=== PATIENT | male | born 1990 | race African-American/Black ===

== ENCOUNTER 2016-07-26 11:39 | Emergency (ER) | payer OTHER ==
[~2016-07-26] VITALS: Ht 175.3 cm; Wt 80.9 kg
[2016-07-26 11:42] VITALS: TEMP 36.9; Ht 175.3 cm; Wt 80.9 kg
[2016-07-26] MEDS ORDERED: CLR10 PO (11:59)
[2016-07-26] MEDS ORDERED: ZNTT/150 PO (11:59)
[2016-07-26] MEDS ORDERED: SODIUM CHLORIDE 0.9% 1000ML 1,000 ML IV STA (12:14)
[2016-07-26 12:39] LABS: BASO % 0.3 %; BASO ABS # 0.02 K/uL (0-0.2); COMPLETE YES; EOS % 3.9 %; HEMATOCRIT 46.8 % (42-52); IG% 0.2 %; LYMPH % 38.5 %; LYMPH ABS # 2.28 K/uL (1.2-3.4); MEAN CELL VOLUME 92.5 fL (80-100); MEAN CORPUSCULAR HEMOGLOBIN 33.8 pg (25-34); MEAN CORPUSCULAR HGB CONC 36.5 g/dl (32-36); MEAN PLATELET VOLUME 9.9 fL (7.4-10.4); MONO % 11.5 %; NEUT % 45.6 %; PLATELET COUNT 166 K/uL (130-400); RED BLOOD COUNT 5.06 M/uL (4.7-6.1); WHITE BLOOD COUNT 5.92 K/uL (4.8-10.8)
[2016-07-26] MEDS ORDERED: KETOROLAC TROMETHAMINE 30 MG/ML VIAL IV STA (12:52)
[2016-07-26 12:59] LABS: BUN/CREATININE RATIO 8.6 (10-20); CALCIUM 9.4 mg/dl (8.5-10.1); POTASSIUM 3.5 mmol/L (3.5-5.1)
[2016-07-26] MEDS ORDERED: OPTIRAY 320 IV PRN (13:00)
--- NOTE | 2016-07-26 14:23 | DIAGNOSTIC IMAGING REPORT ---
ABDOMEN AND PELVIS CT WITH IV CONTRAST CT DOSE: 282.65 mGy.cm HISTORY: right sided abdominal pain, vomiting. No prior surgeries. TECHNIQUE: Multiaxial CT images of the abdomen and pelvis were performed following the use of intravenous contrast. COMPARISON STUDY: None. FINDINGS: The lung bases are clear. The liver, spleen, gallbladder, pancreas, kidneys, and adrenal glands are within normal limits. No bowel wall thickening or obstruction. The pelvic organs are unremarkable. No suspicious lytic or blastic osseous lesions. Normal appendix. A few sigmoid diverticula. IMPRESSION: 1. No bowel wall thickening or obstruction. 2. Normal appendix. 3. A few colonic diverticula. Electronically signed by: Logan Selby M.D. 07/26/2016 2:22 PM Dictated Date/Time: 07/26/2016 2:08 PM
[2016-07-26 15:53] LABS: URINE APPEARANCE CLEAR (CLEAR); URINE BILIRUBIN NEG (NEG); URINE COLOR YELLOW; URINE NITRITE NEG (NEG); URINE PH 7.5 (4.5-7.5); URINE SPECIFIC GRAVITY > 1.045 (1.000-1.030); UROBILINOGEN NEG (NEG); ZZUR CULT IF INDIC CLEAN CATCH NO
[2016-07-26 15:54] LABS: MANUAL MICROSCOPIC REQUIRED? NO; REVIEW REQ? NO
[2016-07-26 16:21] VITALS: BP 131/76; PULSE 88; O2SAT 98
--- NOTE | 2016-07-26 19:59 | EMERGENCY ROOM VISIT NOTE ---
History Report prepared by Omkaribhansa: Ruth Lane Under the Supervision of: Dr. Camilo Frank M.D. First contact with patient: 12:13 Chief Complaint: ABDOMINAL PAIN Stated Complaint: DYSPHAGIA Nursing Triage Summary: Diffuse abd pain, right side greater than left. Vomited today, yellow liquid. Still has gallbladder. History of Present Illness The patient is a 25 year old male who presents to the Emergency Room with complaints of waxing and waning abdominal pain over the past 3 days. The pain is located in the periumbilical area but is worse towards the right side of his abdomen. He has never had similar abdominal pain before. Today, he had an episode of vomiting. The patient states that he has had some heartburn recently but he has a history of GERD. His current overall discomfort is a 5/10, although it was a 10/10 this morning. He does not have a history of abdominal surgeries. There is no known family history of abdominal problems. Pt denies LOC , headache, fevers, chills, diaphoresis, visual changes, neck pain, chest pain, breathing difficulties, nausea, back pain, melena, hematochezia, groin pain, urinary symptoms, numbness, weakness, lymphadenopathy, rash, or other complaints. Source of History: patient Onset: over the past 3 days Position: abdomen (periumbilical, worse on right side) Symptom Intensity: 5/10 Timing: waxes/wanes Associated Symptoms: + vomiting Review of Systems See HPI for pertinent positives and negatives. A total of ten systems were reviewed and were otherwise negative. Past Medical & Surgical Medical Problems: (1) Chronic GERD Family History No pertinent family history stated. Social History Smoking Status: Current Every Day Smoker [facility] Occupation Status: other (inmate) Current/Historical Medications Scheduled Loratadine (Claritin), 10 MG PO DAILY Ranitidine (Zantac), 150 MG PO DAILY Allergies Coded Allergies: No Known Allergies (Unverified , 07/26/16) Physical Exam Vital Signs Date Time Temp Pulse Resp B/P Pulse Ox O2 Delivery O2 Flow Rate FiO2 07/26/16 16:21 88 17 131/76 98 07/26/16 14:25 84 16 114/74 99 Room Air 07/26/16 13:24 75 16 149/74 99 Room Air 2/3/17 11:42 36.9 71 18 140/84 99 Room Air Physical Exam GENERAL: Awake, alert, well-appearing, in no distress HENT: Normocephalic, atraumatic. Oropharynx unremarkable. EYES: Normal conjunctiva. Sclera non-icteric. NECK: Supple. No nuchal rigidity. FROM. No JVD. RESPIRATORY: Clear to auscultation. CARDIAC: Regular rate, normal rhythm. Extremities warm and well perfused. Pulses equal. ABDOMEN: Soft, non-distended. Left lower, right lower, and mild right upper quadrant tenderness with some guarding but no rebound. No masses. RECTAL: Deferred. MUSCULOSKELETAL: Chest examination reveals no tenderness. The back is symmetrical on inspection without obvious abnormality. There is no CVA tenderness to palpation. No joint edema. LOWER EXTREMITIES: Calves are equal size bilaterally and non-tender. No edema. No discoloration. NEURO: Normal sensorium. No sensory or motor deficits noted. SKIN: No rash or jaundice noted. Medical Decision & Procedures ER Provider Diagnostic Interpretation: Radiology results as stated below per my review and radiologist interpretation. ABDOMEN AND PELVIS CT WITH IV CONTRAST CT DOSE: 282.65 mGy.cm HISTORY: right sided abdominal pain, vomiting. No prior surgeries. TECHNIQUE: Multiaxial CT images of the abdomen and pelvis were performed following the use of intravenous contrast. COMPARISON STUDY: None. FINDINGS: The lung bases are clear. The liver, spleen, gallbladder, pancreas, kidneys, and adrenal glands are within normal limits. No bowel wall thickening or obstruction. The pelvic organs are unremarkable. No suspicious lytic or blastic osseous lesions. Normal appendix. A few sigmoid diverticula. IMPRESSION: 1. No bowel wall thickening or obstruction. 2. Normal appendix. 3. A few colonic diverticula. Electronically signed by: Logan Selby M.D. 07/26/2016 2:22 PM Dictated Date/Time: 07/26/2016 2:08 PM Laboratory Results 07/26/16 12:01 Red Blood Count 5.06, Mean Corpuscular Volume 92.5, Mean Corpuscular Hemoglobin 33.8, Mean Corpuscular Hemoglobin Concent 36.5, Mean Platelet Volume 9.9, Neutrophils (%) (Auto) 45.6, Lymphocytes (%) (Auto) 38.5, Monocytes (%) (Auto) 11.5, Eosinophils (%) (Auto) 3.9, Basophils (%) (Auto) 0.3, Neutrophils # (Auto ) 2.70, Lymphocytes # (Auto) 2.28, Monocytes # (Auto) 0.68, Eosinophils # (Auto ) 0.23, Basophils # (Auto) 0.02 07/26/16 12:01 Test 07/26/16 12:01 07/26/16 15:30 White Blood Count 5.92 K/uL (4.8-10.8) Red Blood Count 5.06 M/uL (4.7-6.1) Hemoglobin 17.1 g/dL (14.0-18.0) Hematocrit 46.8 % (42-52) Mean Corpuscular Volume 92.5 fL (80-100) Mean Corpuscular Hemoglobin 33.8 pg (25-34) Mean Corpuscular Hemoglobin Concent 36.5 g/dl (32-36) Platelet Count 166 K/uL (130-400) Mean Platelet Volume 9.9 fL (7.4-10.4) Neutrophils (%) (Auto) 45.6 % Lymphocytes (%) (Auto) 38.5 % Monocytes (%) (Auto) 11.5 % Eosinophils (%) (Auto) 3.9 % Basophils (%) (Auto) 0.3 % Neutrophils # (Auto) 2.70 K/uL (1.4-6.5) Lymphocytes # (Auto) 2.28 K/uL (1.2-3.4) Monocytes # (Auto) 0.68 K/uL (0.11-0.59) Eosinophils # (Auto) 0.23 K/uL (0-0.5) Basophils # (Auto) 0.02 K/uL (0-0.2) RDW Standard Deviation 41.2 fL (36.4-46.3) RDW Coefficient of Variation 12.3 % (11.5-14.5) Immature Granulocyte % (Auto) 0.2 % Immature Granulocyte # (Auto) 0.01 K/uL (0.00-0.02) Anion Gap 8.0 mmol/L (3-11) Est Creatinine Clear Calc Drug Dose 113.0 ml/min Estimated GFR () 120.7 Estimated GFR (Non- 104.1 BUN/Creatinine Ratio 8.6 (10-20) Calcium Level 9.4 mg/dl (8.5-10.1) Total Bilirubin 0.5 mg/dl (0.2-1) Direct Bilirubin 0.1 mg/dl (0-0.2) Aspartate Amino Transf (AST/SGOT) 22 U/L (15-37) Alanine Aminotransferase (ALT/SGPT) 38 U/L (12-78) Alkaline Phosphatase 85 U/L (45-117) Total Protein 7.7 gm/dl (6.4-8.2) Albumin 4.4 gm/dl (3.4-5.0) Lipase 243 U/L (73-393) Urine Color YELLOW Urine Appearance CLEAR (CLEAR) Urine pH 7.5 (4.5-7.5) Urine Specific [place] > 1.045 (1.000-1.030) Urine Protein NEG (NEG) Urine Glucose (UA) NEG (NEG) Urine Ketones NEG (NEG) Urine Occult Blood NEG (NEG) Urine Nitrite NEG (NEG) Urine Bilirubin NEG (NEG) Urine Urobilinogen NEG (NEG) Urine Leukocyte Esterase NEG (NEG) Laboratory results reviewed by me Medications Administered Medications (Trade) Dose Ordered Sig/Jacinta Route Start Time Stop Time Status Last Admin Dose Admin Sodium Chloride (Nss 1000ml) 1,000 ml @ 999 mls/hr Q1H1M STAT IV 07/26/16 12:14 07/26/16 13:14 DC 07/26/16 12:14 999 MLS/HR Ketorolac Tromethamine (Toradol Inj) 30 mg NOW STAT IV 07/26/16 12:52 07/26/16 12:54 DC 07/26/16 13:25 30 MG ED Course 1214: Ordered NSS 1000 ml @ 999 mls/hr IV. 1251: The patient was evaluated in room A2. A complete history and physical exam was performed. 1252: Ordered Toradol Inj 30 mg IV. 1536: I reevaluated the patient. Discussed results and discharge instructions: He verbalized understanding and agreement. The patient is ready for discharge. Medical Decision Triage Nursing notes reviewed. The patient's presentation and history were concerning for abdominal pain. Etiologies such as appendicitis, diverticulitis, obstruction, inflammatory bowel disease, renal colic, PUD, biliary pathology, pancreatitis, mesenteric ischemia, aortic pathology, infections, genitourinary, UTI, perforated viscus, as well as others were entertained. The patient was evaluated. He had some lower abdominal tenderness. The patient had no upper abdominal tenderness. No rebound. The patient had no issues. No hernias. No testicular pain. The patient was given Toradol. He was hydrated. Blood work was obtained. CBC, chemistry panel, LFTs, lipase, urinalysis were negative. The patient underwent CT imaging. This was negative for bowel pathology. Appendix was normal. He has nonspecific abdominal pain. Patient was reassessed. Findings were discussed. He will need close monitoring as an outpatient. I recommended him to be reevaluated by the [facility]. If he worsens in any way he will be brought back to the Emergency Room for reevaluation. By the evaluation outlined above other emergent etiologies such as those listed in the differential, as well as others, were deemed relatively unlikely. The patient and guards were informed about the findings as listed above. All questions were answered and they were pleased with the treatment. Return instructions were outlined and the patient was discharged in stable condition. The patient was referred to the [facility] for follow-up for a recheck of the current condition. The chart was completed utilizing [employer] voice recognition software. Grammatical errors, random word insertions, pronoun errors, and incomplete sentences are an occasional consequence of this system due to software limitations, ambient noise, and hardware issues. Any formal questions or concerns about the content, text, or information contained within the body of this dictation should be directly addressed to the physician for clarification. Impression Primary Impression: Lower abdominal pain Additional Impression: Vomiting Scribe Attestation The scribe's documentation has been prepared under my direction and personally reviewed by me in its entirety. I confirm that the note above accurately reflects all work, treatment, procedures, and medical decision making performed by me. Departure Information Dispostion Home / Self-Care Referrals Joann DE LEON (PCP) Forms HOME CARE DOCUMENTATION FORM, IMPORTANT VISIT INFORMATION Patient Instructions My [facility] Additional Instructions ABDOMINAL PAIN INSTRUCTIONS: CT imaging of the abdomen and pelvis was negative. CBC, chemistry panel, LFTs, lipase, and urinalysis were negative. The patient received IV Toradol. Ibuprofen(Motrin, Advil) may be used for fever or pain. Use 600mg every six hours as needed. Take with food. Avoid using more than 2400mg in a 24 hour period. Do not use 2400mg per day for more than three consecutive days without physician direction. Prolonged inappropriate use can lead to stomach upset or ulcers. (AND/OR) Acetaminophen(Tylenol) may be used for fever or pain. Use 1000mg every six hours as needed. Avoid using more than 4000mg in a 24 hour period. Rest and drink plenty of fluids as tolerated. Slow sips of water or sports drinks are recommended instead of large amounts all at once. Continue current medications. Once your stomach is settled start with a clear liquid diet (jello, soup broth, etc.) and then advance as tolerated. You should avoid full, heavy meals for about 24 hrs from the time your symptoms resolved. Return to the ER immediately for worsening or persistent abdominal pain, vomiting, fevers, chest pains, difficulty breathing, black or bloody stools, worsening of your condition, or as needed. Follow up with the [facility] today for a recheck of your current condition. Problem Qualifiers
== END 2016-07-26 16:22 | disposition home or self-care (01) ==
LOC: C.EDB 11:41 → C.EDA 16:22
DX: R10.30 Lower abdominal pain, unspecified (principal); R11.10 Vomiting, unspecified; K21.9 Gastro-esophageal reflux disease without esophagitis; F17.210 Nicotine dependence, cigarettes, uncomplicated; Z79.899 Other long term (current) drug therapy